=== PATIENT | male | born 1995 | race Caucasian/White ===

== ENCOUNTER 2017-10-28 03:21 | Emergency (ER) | payer OTHER ==
[~2017-10-28] VITALS: Ht 180.3 cm; Wt 74.0 kg
[2017-10-28 03:26] VITALS: BP 151/93; PULSE 89; TEMP 36.8; O2SAT 98; Ht 180.3 cm; Wt 74.0 kg
[2017-10-28] MEDS ORDERED: IBUPROFEN 600 MG TAB PO STA (04:05)
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
== END 2017-10-28 04:35 | disposition home or self-care (01) ==
LOC: EDBD 03:21 → C.EDB 03:23
DX: S13.4XXA Sprain of ligaments of cervical spine, initial encounter (principal); V49.50XA Passenger injured in collision with unspecified motor vehicles in traffic accident, initial encounter; R03.0 Elevated blood-pressure reading, without diagnosis of hypertension

== ENCOUNTER → 2017-12-07 | Day surgery (SDC) | payer BC ==
[~2017-12-07] VITALS: Ht 180.3 cm; Wt 73.0 kg
[~2017-12-07] MED LIST: ALBU18002 INH; ATROPINE SULFATE 0.1 MG/ML 5ML SYR IV PRN; BACITRACIN OINT 15 GM TUBE EXT ONE; BACITRACIN OINT 15 GM TUBE ONE; CEFAZOLIN SOD 1000MG/7.5 ML IV PUSH IV SCH; DEXAMETHASONE SOD INJ 4 MG/ML VIAL ONE; EpHEDrine SULFATE INJ 50 MG/ML AMP IV PRN; FENTANYL CITRATE INJ 50 MCG/1 ML 2 ML VIAL IV PRN; FENTANYL CITRATE INJ 50 MCG/1 ML 2 ML VIAL ONE; HYDR-5688 PO; HYDROCODONE/ACETAMIN 5/325MG TAB ONE; HYDROCODONE/ACETAMIN 5/325MG TAB PO PRN; HYDROmorphone INJ 1 MG/ML SYR IV PRN; LABETALOL HCL IV 5 MG/ML 20ML IV PRN; LIDO 2%/EPINEPHRINE 1:100000 20 ML VIAL INFIL ONE; LIDOCAINE HCL 2% 2 ML VIAL (20MG/ML) ONE; MEPERIDINE HCL 25 MG/ML CARP IV PRN; MIDAZOLAM HCL 1 MG/ML 2ML VIAL ONE; MULT-513 PO; ONDANSETRON INJ 2 MG/ML 2 ML VIAL IV PRN; ONDANSETRON INJ 2 MG/ML 2 ML VIAL ONE; PATIENT'S HEIGHT AND/OR WEIGHT NEEDED SCH; PROPOFOL IV EMULSION 10 MG/ML 20 ML VIAL IV ONE; SODIUM CHLORIDE 0.9% 1000ML 1,000 ML IV SCH
--- NOTE | 2017-12-07 09:49 | History and Physical ---
History & Physical Date Dec 07, 2017. Chief Complaint swollen right ear History of Present Illness The patient is a 22 year old male with complaints of expanding right auricular hematoma, swollen for 1 week, then seen at [facility] last week, more swollen yesterday and referred to me for I and D Additional History Hepatic Disease: No Endocrine Disorder: No Kidney Disease: No Hypertension: No Heart Disease: No Bleeding Tendencies: No Infectious Diseases: No Physical Examination Skin: warm/dry, no rash Eyes: normal inspection, EOMI, sclerae normal ENT: + pertinent finding (3 cm. large auricular swelling involving upper half ofcymba sofiya right auricle) Head: normocephalic, atraumatic Neck: supple, no adenopathy, trachea midline Respiratory/Chest: lungs clear, normal breath sounds, no respiratory distress Cardiovascular: regular rate, rhythm, no edema, no murmur Abdomen / GI: normal bowel sounds, non tender Back: normal inspection Extremities: normal inspection, normal range of motion Neurologic/Psych: no motor/sensory deficits, alert, normal reflexes, oriented x 3 Diagnosis auricular hematoma, right Plan of Treatment incision and drainage
[2017-12-07 10:00] VITALS: BMI 22.0
[2017-12-07 10:16] VITALS: BP 137/96; PULSE 67; TEMP 36.8; O2SAT 97; Ht 180.3 cm; Wt 73.0 kg
--- NOTE | 2017-12-07 12:10 | Discharge Instructions-SurgCtr ---
Discharge Instructions Date of Service Dec 07, 2017. Visit Reason for Visit: Hematoma Of Auricle Of Right Ear Discharge Discharge Diagnosis / Problem: auricular hematoma Discharge Goals Goal(s): Therapeutic intervention Activity Recommendations Activity Limitations: resume your previous activity Anesthesia . Post Anesthesia Instructions: If you have had General Anesthesia or IV Sedation: * Do not drive today. * Resume driving when surgeon permits. * Do not make important decisions or sign legal documents today. * Call surgeon for: 1. Temperature elevations greater than 101 degrees F. 2. Uncontrollable pain. 3. Excessive bleeding. 4. Persistent nausea and vomiting. 5. Medication intolerance (nausea, vomiting or rash). * For nausea and vomiting use only clear liquids such as: tea, soda, bouillon until nausea subsides, then gradually increase diet as tolerated. * If you have any concerns or questions, call your surgeon's office. If physician is unavailable and it is an emergency, call 911 or go to the nearest emergency room. . Instructions / Follow-Up Instructions / Follow-Up ACTIVITY RECOMMENDATIONS: No limitations OVER THE COUNTER MEDICATIONS: Continue any other previous medications unless otherwise indicated by your surgeon. * You may use Tylenol for mild pain as per bottle instructions. SPECIAL CARE INSTRUCTIONS: * Keep operative ear dry. * see Dr. Walden in his office Sunday to remove dressing and sutures * Please call with any increasing pain, increasing drainage, active bleeding, redness and/or swelling, or any concerns. Dr. Walden's office number is . Cell [phone] FOLLOW UP VISIT: If not already scheduled, please call to schedule follow-up appointment with Dr. Walden. Diet Recommendations Home Diet: no limitations Procedures Procedures Performed: Incision and Drainage of Right Ear Pending Studies Studies pending at discharge: no Medical Emergencies . Who to Call and When: Medical Emergencies: If at any time you feel your situation is an emergency, please call 911 immediately. . Non-Emergent Contact Non-Emergency issues call your: Primary Care Provider . . "Provider Documentation" section prepared by Coral Walden. . [place] Drug Monitoring Program Search Results: no issues identified
--- NOTE | 2017-12-07 12:12 | [facility] Post Operative Brief Note ---
Immediate Operative Summary Operative Date Dec 07, 2017. Pre-Operative Diagnosis Auricular hematoma, right. Post-Operative Diagnosis Same as preop. Procedure(s) Performed Incision and Drainage of Right Ear Surgeon Dr. Walden Candy Spreader Surgeon(s) None Estimated Blood Loss 10 ml Findings Consistent with Post-Op Diagnosis Specimens None. Drains None Anesthesia Type General Complication(s) none Disposition Accompanied Pt To Recovery: yes Disposition: Recovery Room / PACU
--- NOTE | 2017-12-07 12:55 | OPERATIVE REPORT ---
DATE OF OPERATION: 12/07/2017 PREOPERATIVE DIAGNOSIS: Right auricular hematoma. POSTOPERATIVE DIAGNOSIS: Same. PROCEDURE: Incision and drainage. SURGEON: Coral Walden MD ANESTHESIA: General LMA. COMPLICATIONS: None. BLOOD LOSS: Less than 10 mL. HISTORY OF PRESENT ILLNESS: A 22-year-old male with a large right auricular hematoma seen at [facility] last week. This continued to get bigger and was referred last evening for definitive treatment. DESCRIPTION OF PROCEDURE: The patient brought to the operating room and placed in supine position. General anesthesia was induced using LMA, prepped with ChloraPrep and draped in usual sterile manner. The incision site was injected with 2% Xylocaine with 1:100,000 strength epinephrine for local anesthesia. The incision was made using #15 blade through the skin and down to the hematoma evacuating serosanguineous fluid from a rather large 3 cm right superior auricular hematoma. The cavity was explored and debrided off organized hematoma using a mosquito hemostat. A compression dressing was composed of segments of a red rubber catheter, cut into 2 cm and in the middle 3 cm segments, sewing this in place with 2-0 Prolene sutures using the red rubber catheter in front of and behind the right ear as a compression dressing. Bacitracin ointment was placed and a light pressure dressing was placed over the ear. The patient tolerated the procedure well, was taken to recovery area in satisfactory condition. I attest to the content of the Intraoperative Record and any orders documented therein. Any exception s are noted below.
--- NOTE | 2017-12-07 13:05 | Anesthesiology Progress Note ---
Anesthesia Post Op Note Date & Time Dec 07, 2017 at 13:05 Vital Signs Pain Intensity: 2 Vital Signs Past 12 Hours Date Time Temp Pulse Resp B/P (MAP) Pulse Ox O2 Delivery O2 Flow Rate FiO2 12/07/17 13:00 37 66 16 127/81 99 Room Air 12/07/17 12:50 66 16 122/68 97 Room Air 12/07/17 12:40 66 16 114/66 100 Oxymask 10 12/07/17 12:30 69 16 122/75 100 Oxymask 10 12/07/17 12:22 36.2 69 16 132/95 100 Oxymask 10 12/07/17 10:16 36.8 67 16 137/96 (110) 97 Room Air Notes Mental Status: alert / awake / arousable, participated in evaluation Pt Amnestic to Procedure: Yes Nausea / Vomiting: adequately controlled Pain: adequately controlled Airway Patency, RR, SpO2: stable & adequate BP & HR: stable & adequate Hydration State: stable & adequate Anesthetic Complications: no major complications apparent
[2017-12-07 13:10] VITALS: BP 131/76; PULSE 61; TEMP 37; O2SAT 100
[2017-12-07 13:37] VITALS: BP 132/87; PULSE 72; O2SAT 100
== END | disposition home or self-care (01) ==
LOC: C.ACU 09:12
PROVIDERS: ATTEND Otolaryngology
DX: S00.431A Contusion of right ear, initial encounter (principal); X58.XXXA Exposure to other specified factors, initial encounter; J45.909 Unspecified asthma, uncomplicated